=== PATIENT | female | born 1990 | race Caucasian/White ===

== ENCOUNTER 2019-06-26 04:33 | Emergency (ER) | payer SELFPAY ==
[~2019-06-26] VITALS: Ht 160 cm; Wt 73.0 kg
[2019-06-26 04:34] VITALS: BP 108/71
== END 2019-06-26 05:30 | disposition left against medical advice (07) ==
LOC: ER 04:33
DX: Z53.21 Procedure and treatment not carried out due to patient leaving prior to being seen by health care provider (principal)